=== PATIENT | female | born 1945 | race Asian ===

== ENCOUNTER 2019-03-29 21:42 | Emergency (ER) | payer OTHER ==
[~2019-03-29] VITALS: Ht 149.9 cm; Wt 50.8 kg
[2019-03-29 21:45] VITALS: BP 137/65
--- NOTE | 2019-03-29 22:24 | NUR ---
73 Y/O FEMALE C/O SUDDEN ONSET L UPPER CHEST PAIN SINCE YESTERDAY, PAIN RADIATES TO MID CHEST AND THROAT. 4/10 PAIN. C/O STIFFNESS TO JAW. DENIES N/V/D. NKDA PMH: DM, HLYD, HTN, GLAUCOMA, SURGICAL:THYROIDECTOMY, HYSTERECTOMY
[2019-03-29] MEDS ORDERED: PANTOPRAZOLE 40 MG INJ VIAL IVP ONE (22:30)
[2019-03-29] MEDS ORDERED: NACL 0.9% 1,000 ML IV ONE (22:30)
[2019-03-29] MEDS ORDERED: KETOROLAC 30 MG/ML VIAL IVP ONE (22:30)
[2019-03-29] MEDS ORDERED: ASPIRIN 81 MG TAB.CHEW PO ONE (22:30)
[2019-03-29 23:13] LABS: BASOPHILS # (AUTO) 0.1 K/uL (0.00-0.22); BASOPHILS % (AUTO) 0.9 % (0.0-2.0); EOSINOPHILS # (AUTO) 0.2 K/uL (0-0.4); EOSINOPHILS % (AUTO) 2.8 % (0.0-4.0); HEMATOCRIT 38.7 % (36-48); HEMOGLOBIN 12.8 g/dL (12.0-16.0); LYMPHOCYTES # (AUTO) 2.5 K/uL (2.5-16.5); LYMPHOCYTES % (AUTO) 40.5 % (20.5-51.1); MEAN CORPUSCULAR HEMOGLOBIN 30 pg (27-31); MEAN CORPUSCULAR HGB CONC 33 g/dL (33-37); MEAN CORPUSCULAR VOLUME 91.7 fL (80-94); MONOCYTES # (AUTO) 0.4 K/uL (0.8-1.0); MONOCYTES % (AUTO) 7.1 % (1.7-9.3); NEUTROPHILS % (AUTO) 48.7 % (42.2-75.2); PLATELET COUNT (AUTO) 237 K/uL (140-450); RED BLOOD CELL COUNT(AUTO) 4.22 MIL/uL (4.20-5.40); RED CELL DISTRIBUTION WIDTH 12.6 % (11.6-13.7); WHITE BLOOD COUNT (AUTO) 6.2 K/uL (4.8-10.8)
[2019-03-29 23:39] LABS: ALBUMIN 4.1 g/dL (3.4-5.0); ANION GAP 10.9 (8-16); ASPARTATE AMINOTRANSFERASE 19 U/L (15-37); CARBON DIOXIDE 32.4 mmol/L (21-32); CHLORIDE 104 mmol/L (98-107); CREATININE 0.7 mg/dL (0.6-1.3); GLUCOSE 116 mg/dL (74-106); POTASSIUM 4.3 mmol/L (3.5-5.1); SODIUM SERUM 143 mmol/L (136-145); UREA NITROGEN, BLOOD 14 mg/dL (7-18)
--- NOTE | 2019-03-29 23:42 | NUR ---
PT. SITTING QUIETLY IN BED. VS: 145/53, HR:65; SPO2:98%; T:98.5 F. PAIN LEVEL IS 2/10 AT THIS TIME. DAUGHTER AND ARE AT BEDSIDE.
[2019-03-29 23:46] LABS: PROTHROMBIN TIME 9.5 secs (10.8-13.4)
[2019-03-29 23:52] LABS: TOTAL BILIRUBIN 0.3 mg/dL (0.0-1.0)
[2019-03-30 01:23] VITALS: BP 138/61
--- NOTE | 2019-03-30 01:23 | NUR ---
IV removed, catheter intact and site benign. Applied folded 4x4 gauze and tape to stop bleeding.
--- NOTE | 2019-03-30 01:24 | NUR ---
Patient discharged with v/s stable. Written and verbal after care instructions given and explained. Patient alert, oriented and verbalized understanding of instructions. Ambulatory with steady gait. All questions addressed prior to discharge. ID band removed. Patient advised to follow up with PMD. Rx of PROTONIX, MOTRIN given. Patient educated on indication of medication including possible reaction and side effects. Opportunity to ask questions provided and answered.
== END 2019-03-30 01:23 | disposition home or self-care (01) ==
LOC: MED 21:42
DX: R07.89 Other chest pain (principal); I10 Essential (primary) hypertension; E11.9 Type 2 diabetes mellitus without complications; K21.9 Gastro-esophageal reflux disease without esophagitis; E78.5 Hyperlipidemia, unspecified; H40.9 Unspecified glaucoma
CPT/HCPCS: 36415; 71045; 80053; 82948; 84484; 85025; 85610; 85730; 93005; 96374; 96375; 99284; C9113; J1885; J7030; Q0092